=== PATIENT | male | born 1950 | race Asian ===

== ENCOUNTER 2020-02-27 12:48 | Emergency (ER) | payer MEDICARE ==
[~2020-02-27] VITALS: Ht 167.6 cm; Wt 81.8 kg
[2020-02-27] MEDS ORDERED: ACETAMINOPHEN 500 MG TABLET PO ONE (14:30)
[2020-02-27 17:00] VITALS: BP 151/91
== END 2020-02-27 17:20 | disposition home or self-care (01) ==
LOC: EMS 12:50
DX: S13.4XXA Sprain of ligaments of cervical spine, initial encounter (principal); S20.211A Contusion of right front wall of thorax, initial encounter; S50.01XA Contusion of right elbow, initial encounter; M77.01 Medial epicondylitis, right elbow; I10 Essential (primary) hypertension; E11.9 Type 2 diabetes mellitus without complications; E78.00 Pure hypercholesterolemia, unspecified; V43.52XA Car driver injured in collision with other type car in traffic accident, initial encounter; Y93.89 Activity, other specified; Y92.89 Other specified places as the place of occurrence of the external cause; Y99.8 Other external cause status
CPT/HCPCS: 72040